=== PATIENT | female | born 2005 | race African-American/Black ===

== ENCOUNTER 2024-11-06 17:44 | Emergency (ER) | payer MEDICAID ==
[~2024-11-06] VITALS: Ht 160 cm; Wt 59.0 kg
[2024-11-06 17:49] VITALS: O2SAT 100
[2024-11-06 18:24] LABS: BASOPHILS % 0.8 % (0.0-2.0); EOSINOPHILS % 2.6 % (0.0-5.0); HEMATOCRIT. 30.4 % (36.0-48.0); HEMOGLOBIN. 10.1 g/dL (12.0-16.0); LYMPHOCYTES % 20.7 % (20.0-50.0); MEAN CORPUSCULAR HGB CONC 33.2 g/dL (31.0-37.0); MEAN CORPUSCULAR VOLUME 84.2 fL (81.0-99.0); MEAN PLATELET VOLUME 7.2 fl (7.4-10.4); MONOCYTES % 9.3 % (2.0-8.0); NEUTROPHILS % 66.6 % (40.0-76.0); PLATELET 244 x1000/uL (130-400); RED BLOOD CELL COUNT 3.61 mill/uL (4.2-5.4); RED CELL DISTRIBUTION WIDTH 13.8 % (11.6-14.6); WHITE BLOOD COUNT 7.7 x1000/uL (4.5-11.0)
[2024-11-06] MEDS: SODIUM CHLORIDE 0.9% 1,000 ML IV ONE (18:26)
[2024-11-06] MEDS: ONDANSETRON HCL 4MG/2ML INJ IV ONE (18:26)
[2024-11-06 18:36] LABS: CHLORIDE 103 mEq/L (98-107); POTASSIUM 3.9 mEq/L (3.5-5.1); SODIUM 135 mEq/L (136-145)
[2024-11-06 18:37] LABS: CALCIUM 9.2 mg/dL (8.7-10.4); CARBON DIOXIDE 23 mEq/L (21-32)
[2024-11-06 18:42] LABS: CREATININE 0.6 mg/dL (0.6-1.0); GLUCOSE 86 mg/dL (70-105); UREA NITROGEN BLOOD 8 mg/dL (9-23)
[2024-11-06 22:09] VITALS: BP 101/57; PULSE 95; RESP 22; TEMP 36.9; O2SAT 95
== END 2024-11-06 22:09 | disposition home or self-care (01) ==
LOC: ER 17:44
DX: O26.892 Other specified pregnancy related conditions, second trimester (principal); R55 Syncope and collapse; Z3A.19 19 weeks gestation of pregnancy
CPT/HCPCS: 99283; 96374; 96361; 80048; 85025; 36415; J2405; J7030